=== PATIENT | male | born 1995 | race African-American/Black ===

== ENCOUNTER 2020-08-12 11:20 | Outpatient (REF) | payer OTHER, SELFPAY ==
[2020-08-12 14:02] LABS: Alanine Aminotransferase 20 U/L (0-40); Albumin Level 4.7 g/dL (3.5-5.0); Alkaline Phosphatase 71 U/L (39-117); Anion Gap 12 (12-20); Aspartate Amino Transferase 20 U/L (5-37); Blood Urea Nitrogen 7 mg/dL (9-16); Calcium 9.9 mg/dL (8.4-10.2); Carbon Dioxide 31 mmol/L (22-29); Chloride 101 mmol/L (96-108); Cholesterol 197 mg/dL; Estimated Glomerular Filt Rate > 60; Glucose Fasting 91 mg/dL (60-99); HDL Cholesterol 56 mg/dL; LDL Cholesterol Calculated 123 mg/dl; Potassium 4.4 mmol/l (3.3-5.1); Sodium 140 mmol/L (135-145); Total Protein 8.2 g/dL (6.5-8.0); Triglycerides 90 mg/dL
[2020-08-12 14:11] LABS: Syphilis Screen Nonreactive (Nonreactive)
[2020-08-12 14:25] LABS: TSH reflex Free T4 0.96 mIU/mL (0.32-4.0)
[2020-08-14 07:53] LABS: HBc Num1 0.07 S/CO (0.00-0.79); HBsAGNum1 0.28 S/CO (0.00-0.99); Hepatitis B Core Antibody Nonreactive (Nonreactive); Hepatitis B Surface Antigen Negative (Negative)
[2020-08-14 08:07] LABS: HBS Num1 0.72 mIU/mL (0-7.99); HIV AB/AG Nonreactive (Nonreactive); ~HepC Num1 0.11 S/CO (0.00-0.79); ~Hepatitis B Surface Antibody NONREACTIVE (Nonreactive); ~Hepatitis C Antibody Nonreactive (Nonreactive)
== END 2020-08-12 11:21 | disposition home or self-care (01) ==
LOC: HO.WFDLDS 11:20
PROVIDERS: Visit Provider Family Medicine
DX: Z00.00 Encounter for general adult medical examination without abnormal findings (principal); Z11.3 Encounter for screening for infections with a predominantly sexual mode of transmission
CPT/HCPCS: 80053; 80061; 84443; 86704; 86706; 86780; 86803; 87340; 87389

== ENCOUNTER 2021-08-29 12:36 | Outpatient (REF) | payer OTHER, SELFPAY ==
[2021-08-29 14:37] LABS: Alanine Aminotransferase 30 U/L (0-40); Albumin Level 4.6 g/dL (3.5-5.0); Alkaline Phosphatase 62 U/L (39-117); Anion Gap 12 (12-20); Aspartate Amino Transferase 25 U/L (5-37); Bilirubin Total 1.8 mg/dL (0.0-1.0); Blood Urea Nitrogen 11 mg/dL (9-16); Calcium 9.9 mg/dL (8.4-10.2); Carbon Dioxide 30 mmol/L (22-29); Chloride 102 mmol/L (96-108); Cholesterol 223 mg/dL; Estimated Glomerular Filt Rate > 60; Glucose Fasting 89 mg/dL (60-99); HDL Cholesterol 50 mg/dL; LDL Cholesterol Calculated 152 mg/dl; Potassium 3.7 mmol/L (3.3-5.1); Sodium 140 mmol/L (135-145); Total Protein 7.9 g/dL (6.5-8.0); Triglycerides 108 mg/dL
== END 2021-08-29 12:37 | disposition home or self-care (01) ==
LOC: HO.WFDLDS 12:36
PROVIDERS: Visit Provider Family Medicine
DX: Z00.00 Encounter for general adult medical examination without abnormal findings (principal)
CPT/HCPCS: 36415; 80053; 80061; 84443

== ENCOUNTER 2022-06-23 11:53 | Outpatient (REF) | payer OTHER, SELFPAY ==
[2022-06-23 14:43] LABS: Cholesterol 223 mg/dL; HDL Cholesterol 49 mg/dL; LDL Cholesterol Calculated 152 mg/dl; Triglycerides 112 mg/dL
== END 2022-06-23 11:54 | disposition home or self-care (01) ==
LOC: HO.WFDLDS 11:53
PROVIDERS: Visit Provider Family Medicine
DX: Z00.00 Encounter for general adult medical examination without abnormal findings (principal)
CPT/HCPCS: 36415; 80061

== ENCOUNTER 2023-06-15 10:46 | Outpatient (AMB) | payer OTHER, SELFPAY ==
[2023-06-15 10:54] VITALS: BP 110/68; PULSE 79; RESP 14; TEMP 37.1; O2SAT 99; BMI 27.4
--- NOTE | 2023-06-15 10:54 | A.OFFPC_ITS ---
Vital Signs 06/15/23 10:54 Height 6 ft Weight 202 lb BMI 27.4 BP 110/68 Blood Pressure Location Lt brachial Position Sitting Respiration 14 Pulse 79 Pulse Source Pulse Oximeter Temp 98.7 F Temp Source Oral Pulse Oximetry (%) 99 Oxygen Delivery Method Room Air Intake Visit Reasons: Annual PE Intake Note: Patient reports he is present for a yearly physical and he would like to request STD testing. Maitre D Required: No Accompanied by: Self / Same As Patient Allergies No Known Allergies Allergy (Verified 06/15/23 11:17) Tobacco use date assessed: 06/15/23 Dental Screening Dental Screen Date: 06/15/23 Did you have a dental visit in the last 12 months?: Yes Did you have a dental problem in the last 6 months where you did not have access to dental care?: No Was dental information given to patient?: Patient has dentist HPI HPI Comments History of Present Illness Details 27-year-old male presents for complete p hysical exam. He has past medical history significant for hypercholesterolemia, anxiety, and depression. He was on atorvastatin, fluoxetine, and Abilify. He notes he never took the atorvastatin due to adverse side effects such as muscle aches he learned off. He states he stopped taking his psychotropic medication 3-4 months ago. He states he ran out of both refills and was required to follow up with his therapist and then his psychiatrist for continued refills. He states that he never followed up and therefore his medications were not refilled. He reports controlled anxiety and depression symptoms. He states that he does not intend to reconnect with his therapist or psychiatrist. He states he does not want to resume his psychotropic medications. He has not had blood work done in almost a year. His last visit with his PCP was last June. He notes that he is sexually active, in a monogamous relationship, and reports concerns for STD. He notes that he was treated for chlamydia a month ago and was advised to follow up with his PCP. No acute symptoms at this time. [facility] Surgical History No pertinent past surgical history Family History Father No problems noted. Mother No problems noted. Social History (Reviewed 09/26/23 @ 11:00 by Cleo Vaz Housing: Apartment Alcohol intake: current Alcohol intake frequency: a few times a week Patient Tobacco Use Status: Never used Tobacco e-Cigarette/Vaping Use: Currently Using (socially- Nicotene) Second Hand Smoke Exposure: No service: No Current occupational status: employed and student ([employer] ) Current occupation: [employer] Current occupational exposures/hazards: Yes Cognitive needs: No Hearing needs: No Vision needs: No Questionnaire PHQ-9 Over the last 2 weeks, how often have you been bothered by any of the following problems? 1. Little interest or pleasure in doing things: several days 2. Feeling down, depressed, or hopeless: several days 3. Trouble falling or staying asleep, or sleeping too much: nearly every day 4. Feeling tired or having little energy: more than half the days 5. Poor appetite or overeating: more than half the days 6. Feeling bad about yourself - or that you are a failure or have let yourself or your family down: more than half the days 7. Trouble concentrating on things, such as reading the newspaper or watching television: several days 8. Moving or speaking so slowly that other people could have noticed. Or the opposite - being so fidgety or restless that you have been moving around a lot more than usual: not at all 9. Thoughts that you would be better off or of hurting yourself in some way: not at all Total score: 12 Depression Screening Interpretation: Positive Depression Screening Follow-up: Existing condition, Change in Medication and Declines treatment 56470 - PHQ-9 Billing: Yes Source: Developed by Drs. Oswaldo Rogers, Belkis Roland, Hay Toro and colleagues, with an educational mirza from [employer]. Thrive Questionnaire Date Thrive assessed: 08/28/21 AUDIT C Alcohol Use Questionnaire (AUDIT-C) 1. How often do you have a drink containing alcohol?: 2-4 times a month 2. How many drinks containing alcohol do you have on a typical day when you are drinking?: 3 or 4 3. How often do you have six or more drinks on one occasion?: Less than monthly Total Score: 4 JAN-7 AMB Questionnaire JAN-7 Date JAN - 7 assessed: 06/15/23 Feeling nervous, anxious, or on edge: 2 = More than half the days Not being able to stop or control worryin = Several days Worrying too much about different things: 1 = Several days Trouble relaxin = Not at all Being so restless that it is hard to sit still: 0 = Not at all Becoming easily annoyed or irritable: 2 = More than half the days Feeling afraid as if something awful might happen: 1 = Several days Total JAN-7 score (0-4 normal; 5-9 mild; 10-14 moderate; 15-21 severe): 7 Source: Developed by Drs. Oswaldo Rogers, Belkis Roland, Hay Toro and colleagues, with an educational mirza from [employer]. JAN-7 Assessment Billing JAN-7 Assessment Tool: JAN-7 Assessment 64382 Review of Systems Const Details: Denies chills, Denies fatigue, Denies fever(s), Denies headache(s) and Denies weakness HEENT Denies change in vision, Denies dizziness, Denies headache(s), Denies hearing loss, Denies nasal congestion, Denies sinus pain, Denies sinus pressure and Denies sore throat Card Denies chest pain, Denies lightheadedness, Denies dyspnea and Denies other (palpitations) Resp Denies cough, Denies dyspnea and Denies wheezing GI Denies abdominal pain, Denies melena, Denies hematochezia, Denies change in bowel habits, Denies dyspepsia and Denies nausea Denies hematuria and Denies dysuria Musc Denies abnormal gait, Denies myalgias, Denies arthralgias, Denies numbness and Denies tingling Skin/Breast Denies rash, Denies unusual bruising and Denies wounds Neuro Denies abnormal gait, Denies dizziness, Denies headache(s), Denies memory loss, Denies numbness, Denies Sensory deficit (Neuro), Denies tingling and Denies weakness Psych Denies anxiety, Denies depression and Denies memory loss Endo Denies cold intolerance, Denies fatigue, Denies heat intolerance, Denies polydipsia and Denies polyuria Niko/Lymph Denies easy bleeding and Denies easy bruising Aller/Immun Denies wheezing Physical exam (Primary Care) Vital Signs: Last Vital Signs Temp 98.7 F 06/15/23 10:54 Pulse 79 06/15/23 10:54 Resp 14 06/15/23 10:54 BP 110/68 06/15/23 10:54 Pulse Ox 99 06/15/23 10:54 Oxygen Delivery Method Room Air 06/15/23 10:54 BMI result Body Mass Index 27.4 Tobacco/Smoking Status: Tobacco use Status Tobacco use date assessed 06/15/23 06/15/23 11:00 Patient Tobacco Use Status Never used Tobacco 06/15/23 11:00 e-Cigarette/Vaping Use Currently Using (socially- 06/15/23 11:00 Nicotene) PHQ-9: PHQ-9 Score PHQ-9: Total score 12 06/15/23 11:13 Depression Screening Interpretation: Positive Depression Screening Follow-up: Existing condition, Change in Medication and Declines treatment Thrive Assessment: Date of Thrive Assessment Date Thrive assessed 08/28/21 06/15/23 11:00 Const Other: General: no acute distress, well developed, alert and awake Nutritional Appearance: well nourished Orientation/consciousness: patient oriented x3 HENMT Head: Yes normocephalic and Yes atraumatic Ears: hearing grossly normal bilaterally and TM's normal bilaterally General nose exam: Normal external nose present and Normal nares present Mouth: Normal oral and palatal mucosa present and moist mucous membranes Teeth and gingiva: dentition normal Throat: Yes oropharynx normal Eyes Pupils: Equal, round and reactive pupils present and Pupil accommodation reflex normal EOM: EOMs intact bilaterally Neck Neck: Yes normal visual inspection, Yes no lymphadenopathy and Yes trachea midline Thyroid: Thyroid normal Carotids: no bruits Lymphatic: no lymphadenopathy noted Chest Chest palpation & inspection: normal inspection of the chest Resp Effort & Inspection: normal respiratory effort Auscultation: clear to auscultation bilaterally Cardio Rate: regular rate Rhythm: regular rhythm Heart sounds: S1 normal heart sound present, S2 normal heart sound present, no gallops, no murmurs and no rubs Bruits: no abdominal aortic bruits and no carotid bruits GI Palpation (GI): No Abdominal aortic bruit present, Soft to palpation, nontender, No hepatosplenomegaly present and No Rebound tenderness present Auscultation: normal bowel sounds General: Yes no CVA tenderness Back/Spine/Pelvis Back: no CVA tenderness Cervical Spine: cervical ROM normal and No Cervical spine tenderness Thoracic/Lumbar Spine: thoraco-lumbar ROM normal, No pain with thoraco-lumbar ROM, No thoracic spinal tenderness and No lumbar spinal tenderness Skin General: warm and dry. Normal skin color. Normal skin turgor Lesions: no lesions Rashes: no rashes Trauma: no lacerations or abrasions Wounds: no wounds Nails: normal Neuro General: patient oriented x3, gait normal and CN's II-XI intact bilaterally Cranial nerves: Yes Equal, round and reactive pupils present Cognition (Neuro): normal cognition Gait exam (Neuro): Normal gait present Motor exam (neuro): 5/5 motor strength present throughout Sensory Exam: No Sensory deficit (Neuro) Deep tendon reflexes (DTR's): Right patellar reflex intensity grade: 2+ and Left patellar reflex intensity grade: 2+ Extrem General: Yes normal to inspection, No edema and No calf tenderness Psych Appearance: grossly normal Affect: normal affect Attitude: cooperative Thought process: Normal thought process present Assessment and Plan Assessment & Plan (1) Annual physical exam: Code(s): Z00.00 - Encounter for general adult medical examination without abnormal findings Plan: Normal physical exam of a 27-year-old male No significant physical restrictions or limitations noted Advised to schedule a physical exam with his PCP for next year Advised to get routine blood work done and schedule a telehealth visit for labs review Follow-up with symptoms or concerns Verbalized understanding and agreed with treatment plan. (2) Anxiety and depression: Code(s): F41.9 - Anxiety disorder, unspecified; F32.A - Depression, unspecified Plan: PHQ-9 and JAN-7 scores revealed moderate depression and mild anxiety respectively He notes he stop taking fluoxetine and Abilify 3-4 months ago and stopped seeing his therapist and psychiatrist He declined medication management and behavioral referral at this time Routine exercise encouraged Follow-up with PCP with symptoms or concerns Verbalized understanding and agreed with the plan. (3) Hypercholesterolemia: Code(s): E78.00 - Pure hypercholesterolemia, unspecified Plan: He has history of elevated cholesterol levels He was prescribed atorvastatin which he notes he never took due to adverse effect such as body aches that he learned He admits to exercising routinely Encouraged to continue routine exercise Advised to limit foods high in saturated fat and avoid foods high trans fat Labs including lipid panel ordered. Advised to get blood work done and schedule a telehealth visit for labs review Verbalized understanding and agreed with the plan. (4) Screening for STDs (sexually transmitted diseases): Code(s): Z11.3 - Encounter for screening for infections with a predominantly sexual mode of transmission Plan: He notes that he is sexually active, in a monogamous relationship, and reports concerns for STD. He notes that he was treated for chlamydia a month ago and was advised to follow up with his PCP. No acute symptoms at this time. Labs and urine ordered for STD screening Safe sexual practices instructed and encouraged Advised to follow-up with symptoms or concerns Verbalized understanding and agreed with the treatment plan. Orders: Orders Comprehensive [place]. Panel Fast Today Z00.00 - Encounter for general adult medical examination without abnormal findings TSH reflex Free T4 Today Z00.00 - Encounter for general adult medical examinati on without abnormal findings UA CC w/rflx Micro + Cult Today Z00.00 - Encounter for general adult medical examination without abnormal findings Syphilis Screen Today Z11.3 - Encounter for screening for infections with a predominantly sexual mode of transmission Hepatitis B,C Profile Today Z11.3 - Encounter for screening for infections with a predominantly sexual mode of transmission CT NG by PCR Today Z11.3 - Encounter for screening for infections with a predominantly sexual mode of transmission Complete Blood Count Auto Diff Today Z00.00 - Encounter for general adult medical examination without abnormal findings Lipid Panel Today Z00.00 - Encounter for general adult medical examination without abnormal findings HIV Ab/Ag Today Z11.3 - Encounter for screening for infections with a predominantly sexual mode of transmission Coding Level of Care Code Est Pt Level 3 (57900) Diagnoses Annual physical exam Z00.00 Anxiety and depression F41.9; F32.A Hypercholesterolemia E78.00 Screening for STDs (sexually transmitted diseases) Z11.3 Additional Codes JAN-7 Assessment Billing - JAN-7 Assessment Tool: JAN-7 Assessment 10703 ([id number])
== END 2023-06-15 11:47 | disposition home or self-care (01) ==
PROVIDERS: PCP Family Medicine; Visit Provider Nurse Practitioner Family
DX: Z00.00 Encounter for general adult medical examination without abnormal findings (principal); F41.9 Anxiety disorder, unspecified; F32.A Depression, unspecified; E78.00 Pure hypercholesterolemia, unspecified; Z11.3 Encounter for screening for infections with a predominantly sexual mode of transmission
CPT/HCPCS: 99395

== ENCOUNTER 2023-06-21 12:47 | Outpatient (REF) | payer OTHER, SELFPAY ==
[2023-06-21 14:28] LABS: MANUAL DIFF FLAG NO
[2023-06-21 14:43] LABS: Basophils Percent Auto 0.4 % (0-2); Eosinophils Absolute Auto 0.2 X10*3/uL (0.0-0.4); Eosinophils Percent Auto 3.3 % (0-4); Hematocrit 43.9 % (42.0-52.0); Imm Gran Abs Auto 0.01 X10*3/uL (0.00-0.03); Imm Gran Pct Auto 0.2 % (0.0-0.4); Lymphocytes Absolute Auto 1.7 X10*3/uL (1.2-4.9); Lymphocytes Percent Auto 32.6 % (20-40); Mean Corpuscular HGB Conc 31.9 g/dl (31.0-36.0); Mean Corpuscular Hemoglobin 28.5 pg (27.0-33.0); Mean Corpuscular Volume 89.2 fL (80.0-98.0); Mean Platelet Volume 11.7 fL (9.4-12.4); Monocytes Absolute Auto 0.5 X10*3/uL (0.1-1.2); Neutrophils Absolute Auto 2.8 x10*3/uL (2.0-8.3); Neutrophils Percent Auto 54.5 % (45-73); Platelet Count 194 X10*3/uL (160-400); Red Blood Count 4.92 X10*6/uL (4.60-5.80); Red Cell Distribution Width 12.1 % (11.0-16.0); White Blood Count 5.1 X10*3/uL (4.8-10.8)
[2023-06-21 15:18] LABS: Alanine Aminotransferase 30 U/L (0-40); Albumin Level 4.6 g/dL (3.5-5.0); Alkaline Phosphatase 67 U/L (39-117); Anion Gap 14 (12-20); Aspartate Amino Transferase 26 U/L (5-37); Bilirubin Total 1.4 mg/dL (0.0-1.0); Blood Urea Nitrogen 6 mg/dL (9-16); Calcium 10.2 mg/dL (8.4-10.2); Carbon Dioxide 29 mmol/L (22-29); Chloride 102 mmol/L (96-108); Cholesterol 227 mg/dL (<200); Glucose Fasting 88 mg/dL (60-99); HDL Cholesterol 46 mg/dL (>40); LDL Cholesterol Calculated 159 mg/dL (<100); Potassium 4.3 mmol/L (3.3-5.1); Sodium 141 mmol/L (135-145); Triglycerides 114 mg/dL (<150)
[2023-06-21 15:29] LABS: Estimated Glomerular Filt Rate > 60
[2023-06-21 15:30] LABS: Appearance Urine Clear; Color Urine Yellow; Glucose Urine UA Negative (Negative); HBS Num1 0.23 mIU/mL (0-7.99); HBsAGNum1 0.53 S/CO (0.00-0.99); HIV AB/AG Nonreactive (Nonreactive); HIV Num 1 0.06 S/CO (0.00-0.99); Hepatitis B Core Antibody Nonreactive (Nonreactive); Hepatitis B Surface Antigen Negative (Negative); Leukocyte Esterase Urine Negative (Negative); Nitrite Urine Negative (Negative); PH 8.5 (5.0-9.0); Syphilis Screen Nonreactive (Nonreactive); Urine Blood Negative (Negative); Urine Ketones Negative (Negative); Urine Protein Negative (Neg-Trace); ~HepC Num1 0.09 S/CO (0.00-0.79); ~Hepatitis B Surface Antibody NONREACTIVE (Nonreactive); ~Hepatitis C Antibody Nonreactive (Nonreactive)
[2023-06-21 15:31] LABS: TSH reflex Free T4 0.56 uIU/mL (0.32-4.0)
== END 2023-06-21 12:48 | disposition home or self-care (01) ==
LOC: HO.WFDLDS 12:47
PROVIDERS: Family Medicine; Visit Provider Nurse Practitioner Family
DX: Z00.00 Encounter for general adult medical examination without abnormal findings (principal); Z11.4 Encounter for screening for human immunodeficiency virus [HIV]; E78.00 Pure hypercholesterolemia, unspecified; Z20.2 Contact with and (suspected) exposure to infections with a predominantly sexual mode of transmission
CPT/HCPCS: 36415; 80053; 80061; 81003; 84443; 85025; 86704; 86706; 86780; 86803; 87340; 87389

== ENCOUNTER 2023-07-01 15:42 | Outpatient (AMB) | payer OTHER, SELFPAY ==
--- NOTE | 2023-07-01 15:26 | MHC.PC.OV ---
Intake Visit Reasons: labs review Intake Note: Patient is calling for labs review today. Allergies No Known Allergies Allergy (Verified 07/01/23 15:28) Tobacco use date assessed: 07/01/23 HPI HPI Comments History of Present Illness Details This is a telephonic telehealth visit for review of recent blood work. Patient was evaluated at the office at the end of last month. He has history of hypercholesterolemia, anxiety, and depression. He notes he never took the atorvastatin ordered by his PCP due to adverse side effects such as muscle aches he learned from the internet. He stated that he stopped taking his psychotropic medication 3-4 months ago. He reported controlled anxiety and depression symptoms and declined continued psychopharmacology. He had a complete physical exam. Routine labs were ordered. He offers no complaints and denies acute symptoms. COUNT INCLUDES [facility] Surgical History No pertinent past surgical history Family History Father No problems noted. Mother No problems noted. Social History Housing: Apartment Alcohol intake: current Alcohol intake frequency: a few times a week Patient Tobacco Use Status: Never used Tobacco e-Cigarette/Vaping Use: Currently Using (socially- Nicotene) Second Hand Smoke Exposure: No service: No Current occupational status: employed and student ([employer] ) Current occupation: [employer] Current occupational exposures/hazards: Yes Cognitive needs: No Hearing needs: No Vision needs: No Questionnaire Thrive Questionnaire Date Thrive assessed: 08/28/21 JAN-7 AMB Questionnaire JAN-7 Date JAN - 7 assessed: 06/15/23 Source: Developed by Drs. Oswaldo Rogers, Belkis Roland, Hay Toro and colleagues, with an educational mirza from [employer]. Review of Systems Const Details: Const Denies chills, Denies fatigue, Denies fever(s), Denies headache(s) and Denies weakness ENT Denies dizziness and Denies headache(s) Card Denies chest pain, Denies lightheadedness, Denies dyspnea and Denies other (Palpitations) Resp Denies cough, Denies dyspnea, Denies wheezing and Denies other ( shortness of breath) GI Denies abdominal pain, Denies melena, Denies hematochezia, Denies change in bowel habits, Denies dyspepsia and Denies nausea Denies hematuria and Denies dysuria Musc Denies abnormal gait, Denies myalgias, Denies arthralgias, Denies numbness and Denies tingling Skin/Breast Denies rash, Denies unusual bruising and Denies wounds Neuro Denies abnormal gait, Denies dizziness, Denies headache(s), Denies memory loss, Denies numbness, Denies Sensory deficit (Neuro), Denies tingling and Denies weakness Psych Denies anxiety, Denies depression, Denies memory loss Endo Denies cold intolerance, Denies fatigue, Denies heat intolerance, Denies polydipsia and Denies polyuria Aller/Immun Denies wheezing Physical exam (Primary Care) Tobacco/Smoking Status: Tobacco use Status Tobacco use date assessed 07/01/23 07/01/23 15:32 Patient Tobacco Use Status Never used Tobacco 07/01/23 15:27 e-Cigarette/Vaping Use Currently Using (socially- 07/01/23 15:27 Nicotene) Thrive Assessment: Date of Thrive Assessment Date Thrive assessed 08/28/21 07/01/23 15:27 Const Other: Telemedicine visit. No physical exam. Telehealth Telehealth Location of provider rendering services: practice address Location of patient: other Patient Identification confirmed using: Name, : Yes Telehealth method: voice only Patient verbally consented to treatment: Yes Patient verbally consented to billing insurance company: Yes Patient informed of any privacy concerns related to visit: No Assessment and Plan Assessment & Plan (1) Hypercholesterolemia: Code(s): E78.00 - Pure hypercholesterolemia, unspecified Plan: Recent lab results reviewed with the patient. Unremarkable findings except for elevated total cholesterol and LDL levels, 227 and 159 respective. He declines medication treatment at this time. Advised to limit foods high in saturated fat and avoid foods high trans fat. Routine exercise encouraged. Advised to follow-up with his PCP with concerns or symptoms. Encouraged to call and schedule his next physical exam for next year. Verbalized understanding and agreed with treatment plan. Labs for STD screening reviewed with the patient. Normal results. Patient instructed on safe sex practices including barrier methods. Verbalized understanding and agreed with the plan. Coding Level of Care Code Tele Est Pt Level 2 (19889) Diagnoses Hypercholesterolemia E78.00 Time Spent (min) 15
== END 2023-07-01 17:00 | disposition home or self-care (01) ==
LOC: HO.HMGFM 15:42
PROVIDERS: PCP Family Medicine; Visit Provider Nurse Practitioner Family
DX: E78.00 Pure hypercholesterolemia, unspecified (principal)
CPT/HCPCS: 99212